=== PATIENT | female | born 1980 | race Caucasian/White ===

== ENCOUNTER → 2018-08-19 | Outpatient (CLI) | payer BC ==
--- NOTE | 2018-08-19 09:13 | CT ---
EXAMINATION TYPE: CT iac wo con DATE OF EXAM: 08/19/2018 COMPARISON: None HISTORY: 38-year-old female Left cholesteatoma CT DLP: 366 mGycm Automated exposure control for dose reduction was used. TECHNIQUE: Contiguous high-resolution axial scanning of the temporal bones performed without contras t. Coronal reformatted images obtained. Additional Stenver and Poschl views were reconstructed for t he left side. FINDINGS: There is no abnormality of visualized intracranial structures by thin section CT technique. External auditory canals are clear. The right middle ear cavity and mastoid air cells are well pneumatized. However, there is complete opacification of the left mastoid air cells with opacification extending i nto the attic and left epitympanum with partial encasement of the middle ear ossicles. Contiguous sof t tissue encasement extends down to involve the inferior process of the incus. There is very subtle e grant erosive change/demineralization of the incus. Otherwise, the round and oval windows are normal. No blunting of the scutum. There is no abnormality of bony labyrinths. No dehiscence of the superior semicircular canal on eithe r side. The vestibular aqueduct are well visualized. The facial nerve canal is normal bilaterally. The internal auditory canal and meati are symmetrical bilaterally. There is no evidence of fractures. Suspected prior sinonasal surgery. There is [id number] mucosal thickening within the residual e thmoid sinuses and trace mucosal thickening right maxillary sinus. Reformatted images confirm above findings. IMPRESSION: 1. Complete opacification of the left mastoid air cells. Opacification extends into the attic and lef t epitympanum with partial encasement of the left middle ear ossicles and bony demineralization/early erosion of the incus. 2. Suspect prior sinonasal surgery with mucosal thickening in the residual ethmoid air cells and righ t maxillary sinus.
== END | disposition home or self-care (01) ==
LOC: RADCTMAIN 07:26
PROVIDERS: ATTEND Otolaryngology Otology & Neurotology
DX: H74.8X2 Other specified disorders of left middle ear and mastoid (principal)
CPT/HCPCS: 70480